=== PATIENT | male | born 1965 | race Caucasian/White ===

== ENCOUNTER 2018-01-28 07:08 | Emergency (ER) | payer MEDICAID ==
[~2018-01-28] VITALS: Ht 162.6 cm; Wt 76.2 kg
[2018-01-28 07:13] VITALS: BP 130/63
[2018-01-28] MEDS ORDERED: KETOROLAC 30 MG/ML VIAL IM ONE (07:30)
[2018-01-28 08:38] VITALS: BP 126/63
== END 2018-01-28 08:38 | disposition home or self-care (01) ==
LOC: MED 07:08
DX: S40.011A Contusion of right shoulder, initial encounter (principal); R03.0 Elevated blood-pressure reading, without diagnosis of hypertension; W01.0XXA Fall on same level from slipping, tripping and stumbling without subsequent striking against object, initial encounter; Y93.89 Activity, other specified; Y92.89 Other specified places as the place of occurrence of the external cause; Y99.8 Other external cause status
CPT/HCPCS: 73030; 96372; 99284; J1885; Q0092